=== PATIENT | male | born 1955 | race Caucasian/White ===

== ENCOUNTER 2018-03-31 10:01 | Day surgery (SDC) | payer BC ==
[2018-03-31] MEDS ORDERED: MIDAZOLAM HCL 2MG/2ML VIAL IV ONE (10:02)
[2018-03-31] MEDS ORDERED: LIDOCAINE 2% MDV (20MG/ML) 20ML VIAL IV ONE (10:02)
[2018-03-31] MEDS ORDERED: PROPOFOL 10 MG/ML VIAL IV ONE (10:02)
--- NOTE | 2018-04-01 10:00 | Operative Note ---
DATE OF SURGERY: 03/31/2018 OPERATION: COLONOSCOPY to the cecum with cold biopsy forceps polypectomy x1 and cold snare polypectomy x5. INDICATION: Colorectal cancer screening. Last examination was 10 years ago without polyps noted. He does have a family history in multiple brothers of colon polyps. ANESTHESIA: Intravenous sedation was administered by the department of anesthesiology and included Diprivan titrated to effect. PROCEDURE: Following informed consent from this alert individual including a discussion of the risks and benefits of the procedure and an opportunity for the patient to ask questions, the patient was in the left lateral decubitus position. A digital rectal examination was performed. No abnormalities were noted. Following this, the Olympus [id number] video colonoscope was inserted into the rectum without resistance. The rectal mucosa was unremarkable except for 4 small polyps measuring 4-5 mm in size. Each polyp was removed with cold snare polypectomy and suctioned through the colonoscope into a collection trap. The colonoscope was farther advanced up through the bowel to the level of the cecum. The cecum was defined by noting the appendiceal orifice and ileocecal valve. The colon preparation was good. From the base of the cecum, the colonoscope was slowly withdrawn. In the ascending colon, there were 2 polyps noted. One was diminutive in size measurement 3 mm and removed with biopsy forceps. The second ascending colon polyp was slightly larger measuring 4-5 mm in size and was removed with cold snare polypectomy. No other mucosal changes were appreciated until the rectum was reached. Again, there were polyps noted in the rectum noted above which were removed with cold snare. Retroflexion in the rectum was endoscopically unremarkable. The endoscope was straightened and removed. The patient tolerated the procedure well and was returned to the recovery area in stable condition. IMPRESSION: 1. One 3 mm ascending colon polyp removed with cold biopsy forceps. 2. One ascending colon polyp measuring 4-5 mm in size removed with cold snare polypectomy. 3. Four rectosigmoid polyps measuring 4-5 mm in size removed with cold snare polypectomy. 4. Diverticulosis in the sigmoid colon. RECOMMENDATIONS: Further recommendations will be forthcoming pending results of pathology obtained today. Followup will be with Dr. Dale. As always, thank you for allowing me to participate in the care of your patient. CC: Nay DUNCAN
--- NOTE | 2018-04-01 10:00 | Operative Note ---
DATE OF SURGERY: 03/31/2018 OPERATION: COLONOSCOPY with cold snare polypectomy x2 and electrocautery snare polypectomy x1. Biopsy and Endoclip placement x1. INDICATION: History of polyps removed 3 years ago. The patient returns at this time for surveillance. Adenoma was noted previously. ANESTHESIA: Intravenous sedation was administered by the department of anesthesiology and included Diprivan titrated to effect. PROCEDURE: Following informed consent from this alert individual including a discussion of the risks and benefits of the procedure and an opportunity for the patient to ask questions, the patient was in the left lateral decubitus position. DICTATION ENDS HERE CC: Nay DUNCAN
== END 2018-03-31 12:43 | disposition home or self-care (01) ==
LOC: HOP 10:01
PROVIDERS: ATTEND Internal Medicine Gastroenterology
DX: Z12.11 Encounter for screening for malignant neoplasm of colon (principal); Z80.0 Family history of malignant neoplasm of digestive organs; D12.2 Benign neoplasm of ascending colon; D12.7 Benign neoplasm of rectosigmoid junction; K57.30 Diverticulosis of large intestine without perforation or abscess without bleeding